=== PATIENT | male | born 1980 | race Caucasian/White ===

== ENCOUNTER → 2018-12-07 | Outpatient (CLI) | payer BC ==
--- NOTE | 2018-12-07 12:30 | RAD ---
EXAM: Abdomen sonogram. HISTORY: Abnormal liver function laboratory values. TECHNIQUE: Sonographic imaging of the abdomen was performed. COMPARISON: None. FINDINGS: The liver is mildly enlarged. There is hepatic steatosis. No focal hepatic lesion is seen. The gallbladder is unremarkable. The common bile duct is normal in caliber. The kidneys are unremarkable. The spleen is mildly enlarged, measuring 15.2 cm. The aorta and inferior vena cava are unremarkable. The pancreas is obscured due to bowel gas and body habitus. IMPRESSION: 1. Hepatomegaly and hepatic steatosis. 2. Mild splenomegaly. 3. Obscured pancreas. Electronically signed by: Kenia Dugan MD (12/07/2018 12:26 PM) [id number]
== END | disposition home or self-care (01) ==
LOC: US 09:37
PROVIDERS: ATTEND Family Medicine
DX: K76.0 Fatty (change of) liver, not elsewhere classified (principal); R16.1 Splenomegaly, not elsewhere classified
CPT/HCPCS: 76700